=== PATIENT | female | born 1970 | race Caucasian/White ===

== ENCOUNTER 2016-12-06 14:01 | Emergency (ER) | payer MEDICAID ==
[2016-12-06 17:25] VITALS: BP 117/79
== END 2016-12-06 17:25 | disposition home or self-care (01) ==
LOC: ED 14:01
DX: J18.9 Pneumonia, unspecified organism (principal)
CPT/HCPCS: J7613; J7644

== ENCOUNTER 2016-12-07 13:19 | Emergency (ER) | payer MEDICAID | END 2016-12-07 13:41 | disposition left against medical advice (07) | LOC: ED 13:19 | DX: Z53.21 Procedure and treatment not carried out due to patient leaving prior to being seen by health care provider (principal) ==

== ENCOUNTER 2017-01-10 18:14 | Emergency (ER) | payer MEDICAID ==
[~2017-01-10] VITALS: Ht 157.5 cm; Wt 75.9 kg
[2017-01-10 21:26] VITALS: BP 145/75
== END 2017-01-10 21:26 | disposition home or self-care (01) ==
LOC: ED 18:14
DX: H11.32 Conjunctival hemorrhage, left eye (principal)

== ENCOUNTER 2017-03-12 19:57 | Emergency (ER) | payer MEDICAID ==
[2017-03-12 21:53] VITALS: BP 129/92
== END 2017-03-12 21:53 | disposition home or self-care (01) ==
LOC: ED 19:57
DX: S92.511A Displaced fracture of proximal phalanx of right lesser toe(s), initial encounter for closed fracture (principal); W22.09XA Striking against other stationary object, initial encounter; Y93.89 Activity, other specified; Y99.8 Other external cause status; Y92.89 Other specified places as the place of occurrence of the external cause
CPT/HCPCS: J1885